=== PATIENT | female | born 1935 | race Caucasian/White ===

== ENCOUNTER 2022-01-21 10:33 | Emergency (ER) | payer MEDICARE, OTHER ==
[~2022-01-21] VITALS: Ht 162.6 cm; Wt 75.0 kg
[2022-01-21 10:46] VITALS: TEMP 98
[2022-01-21 12:40] VITALS: BP 148/78; PULSE 80
== END 2022-01-21 12:40 | disposition home or self-care (01) ==
LOC: COL.ER 10:33
DX: S01.112A Laceration without foreign body of left eyelid and periocular area, initial encounter (principal); M25.572 Pain in left ankle and joints of left foot; M25.532 Pain in left wrist; W01.198A Fall on same level from slipping, tripping and stumbling with subsequent striking against other object, initial encounter; Y92.015 Private garage of single-family (private) house as the place of occurrence of the external cause

== ENCOUNTER → 2022-01-26 | Outpatient (CLI) | payer MEDICARE, OTHER ==
[2022-01-26 08:57] VITALS: BP 130/86; PULSE 89; TEMP 98.3
== END ==
LOC: COL.ER 08:50
DX: Z48.02 Encounter for removal of sutures (principal)

== ENCOUNTER 2023-08-28 16:12 | Inpatient (IN) | payer MEDICARE ==
[2023-08-28] VITALS (279 sets, daily range): BP systolic 85–120; BP diastolic 61–70; PULSE 90–152; TEMP 98.8; O2SAT 81–100
[~2023-08-28] VITALS: Ht 162.6 cm; Wt 68.9 kg
[2023-08-28 16:38] LABS: BASO % 0.2 % (0.0-2.0); GRAN % 79.2 % (42.2-75.2); HEMATOCRIT 41.6 % (37.0-47.0); HEMOGLOBIN 14.2 g/dl (12.5-16.0); LYMPH # 0.9 K/mm3 (1.2-3.4); LYMPH % 9.6 % (20.0-51.0); MEAN CELL VOLUME 85 fl (80.0-100.0); MEAN CORPUSCULAR HEMOGLOBIN 29 pg (27-31); MEAN CORPUSCULAR HGB CONC 34 g/dl (33.0-37.0); MEAN PLATELET VOLUME 9.7 fl (7.4-10.4); MONO % 10.7 % (1.7-9.3); PLATELET COUNT 144 K/mm3 (130-400); RED BLOOD COUNT 4.89 M/mm3 (4.10-5.30); REDCELL DISTRIBUTION WIDTH-CV 13.5 % (11.5-14.5)
[2023-08-28 16:46] LABS: INR 1.2 (0.8-3.0); PROTHROMBIN TIME 12.5 SECONDS (9.7-12.8)
[2023-08-28 16:49] LABS: PARTIAL THROMBOPLASTIN TIME 30.5 SECONDS (26.0-37.0)
[2023-08-28 16:54] LABS: ALANINE AMINOTRANSFERASE 19 U/L (0-55); ALBUMIN 3.3 gm/dL (3.4-4.8); ALKALINE PHOSPHATASE 96 U/L (40-150); ANION GAP 14 mmol/L (7-16); AST,SGOT 36 U/L (5-34); BILIRUBIN,TOTAL 1.1 mg/dL (0.2-1.2); BLOOD UREA NITROGEN 27 mg/dL (10-20); CALCIUM 9.5 mg/dL (8.4-10.2); CARBON DIOXIDE 17 mmol/L (23-31); CHLORIDE 100 mmol/L (98-107); CREATININE, serum 1.26 mg/dL (0.57-1.11); GLUCOSE 123 mg/dL (70-99); POTASSIUM 3.4 mmol/L (3.5-4.5); SODIUM 131 mmol/L (136-145)
[2023-08-28] MEDS ORDERED: COZAAR100 MG PO (16:58)
[2023-08-28] MEDS ORDERED: LASIX 20MG TABL20 MG PO (16:58)
[2023-08-28 17:10] LABS: TROPONIN-I < 0.010 ng/mL (0.00-0.033)
--- NOTE | 2023-08-28 18:00 | NUR ---
Report received from CHRISTOPHER Miller; patient brought over from the ED on cardizem drip running through her peripheral line. Patient is on room air and vital signs are within normal limits with the exception of heart rate which is tachy and rhythm which is afib.
[2023-08-28] MEDS ORDERED: MULTIPLE VITAMI1 TA5 PO (18:31)
[2023-08-28] MEDS ORDERED: MIRALAX PA17 GM/Dose PO (18:31)
--- NOTE | 2023-08-28 19:10 | NUR ---
Received report from day shift nurse. Pt's vitals are stable at this time. Pt in sinus rhythm. Pt is alert and pt's daughter is at bedside. Pt is watching TV with the call light within reach.
[2023-08-29] VITALS (780 sets, daily range): BP systolic 87–124; BP diastolic 54–73; PULSE 81–104; TEMP 97.6–98.6; O2SAT 89–100
[2023-08-29 05:53] LABS: BASO % 0.1 % (0.0-2.0); GRAN # 6.3 K/mm3 (1.4-6.5); GRAN % 78.3 % (42.2-75.2); HEMATOCRIT 39.7 % (37.0-47.0); HEMOGLOBIN 12.6 g/dl (12.5-16.0); LYMPH # 0.8 K/mm3 (1.2-3.4); LYMPH % 9.9 % (20.0-51.0); MEAN CORPUSCULAR HEMOGLOBIN 29 pg (27-31); MEAN CORPUSCULAR HGB CONC 32 g/dl (33.0-37.0); MEAN PLATELET VOLUME 9.7 fl (7.4-10.4); MONO # 0.9 K/mm3 (0.1-0.6); MONO % 11.3 % (1.7-9.3); PLATELET COUNT 134 K/mm3 (130-400); RED BLOOD COUNT 4.42 M/mm3 (4.10-5.30); REDCELL DISTRIBUTION WIDTH-CV 13.7 % (11.5-14.5)
[2023-08-29 06:01] LABS: MEAN CELL VOLUME 90 fl (80.0-100.0)
[2023-08-29 06:06] LABS: CALCIUM 8.5 mg/dL (8.4-10.2); CREATININE, serum 0.88 mg/dL (0.57-1.11); POTASSIUM 3.4 mmol/L (3.5-4.5)
--- NOTE | 2023-08-29 06:58 | NUR ---
Pt's HR was in sinus rhythm until around 2300 when the pt got up to the bedside commode. When the pt got back into the bed the pt's HR was a-fib/aflutter and flipping back and forth from a-fib and SR. Pt stayed afib/aflutter until around 0222 the pt went into sinus tachy and is currently still in sinus. Pt denied chest pain, SOB, and did not feel like it was pounding when the rhythm was afib/aflutter. Pt was started on heparin drip at the beginning of the shift. Pt also on cardizem, talked to hospitalist to make sure it was titratable. Pt denied pain throughout the night. Pt's other vitals were stable throughout the night. Pt NPO at 0000. Gave report to CHRISTOPHER Davidson.
--- NOTE | 2023-08-29 09:03 | NUR ---
dope and fabric worker met with pt whom was sleeping, and her dtr, Michelle [phone] at bedside. Daughter reports patient is from [facility]. Her PCP is Dr. Lopez and [facility] medications from [facility] with no difficulties. Pt is independent with ADLS and does not use DME. Michelle reports she has a copy of DPOA-HC at home. JARAD advised she can see if [facility] has a copy they can send too. JARAD spoke with Mohit at [facility] who reports he will send the DPOA-HC. JARAD recieved this and placed a copy in the chart. JARAD sent updates to [facility].
--- NOTE | 2023-08-29 15:37 | NUR ---
10:30 FIRST DOSE OF PO AMNIODARONE GIVEN (400MG) PER PHYSICIAN ORDER AND TO D/C CARDIZEM.
--- NOTE | 2023-08-29 15:38 | NUR ---
1100: CARDIZEM AT 5MG /HR D/JACQUES AT THIS TIME.
--- NOTE | 2023-08-29 15:54 | NUR ---
DR PASCAL CONSULTED FOR CARDIOLOGY AND TO F/U WITH JB. PT OFF PRECAUTIONS AND WILL RESTART SUBOXONE, PER DR Rossi MARQUEZ.
[2023-08-30] VITALS (481 sets, daily range): BP systolic 104–113; BP diastolic 57–63; PULSE 77–82; TEMP 97.5–97.7; O2SAT 89–100
[2023-08-30 05:44] LABS: BASO % 0.2 % (0.0-2.0); EOS # 0.1 K/mm3 (0.0-0.7); GRAN % 69.9 % (42.2-75.2); HEMOGLOBIN 11.9 g/dl (12.5-16.0); LYMPH # 0.9 K/mm3 (1.2-3.4); LYMPH % 15.5 % (20.0-51.0); MEAN CORPUSCULAR HEMOGLOBIN 28 pg (27-31); MEAN CORPUSCULAR HGB CONC 34 g/dl (33.0-37.0); MEAN PLATELET VOLUME 9.8 fl (7.4-10.4); MONO # 0.8 K/mm3 (0.1-0.6); MONO % 13.1 % (1.7-9.3); PLATELET COUNT 162 K/mm3 (130-400); RED BLOOD COUNT 4.19 M/mm3 (4.10-5.30); REDCELL DISTRIBUTION WIDTH-CV 13.7 % (11.5-14.5)
[2023-08-30 05:47] LABS: HEMATOCRIT 35.1 % (37.0-47.0); MEAN CELL VOLUME 84 fl (80.0-100.0)
[2023-08-30 05:55] LABS: CALCIUM 8.9 mg/dL (8.4-10.2); CREATININE, serum 0.94 mg/dL (0.57-1.11); POTASSIUM 3.7 mmol/L (3.5-4.5)
--- NOTE | 2023-08-30 07:19 | NUR ---
Report received from CHRISTOPHER Whitley; patient currently resting in chair with no fluids or meds running through her peripheral lines. Patient is on 2 lpm via NC; no other lines or tubes are in place at this time. Patient remains in sinus rhythm and all vital signs are within normal limits this morning.
[2023-08-30] MEDS ORDERED: ELIQUIS 5MG PO (08:40)
[2023-08-30] MEDS ORDERED: CORDARONE200 MG/TAB PO (08:42)
--- NOTE | 2023-08-30 08:54 | NUR ---
dairy machine operator farmworker was informed pt can discharge today anytime to [facility]. SW spoke with daughter who informed SW she can transport patient today. Pt was awake and agreeable to the plan. JARAD spoke with Mohit at [facility] and updated him on the patient's return today.
--- NOTE | 2023-08-30 11:30 | NUR ---
Patient discharged home at approx 1115. Patient left with her daughter and all belongings were sent with patient. Patient was taken out by wheelchair by this nurse; patient was stable and vital signs were within normal limits. Patient remained in normal sinus rhythm. All discharge information was gone over and all questions were answered.
== END 2023-08-30 11:10 | disposition home or self-care (01) | DRG 310 ==
LOC: COL.ER 16:12 → ICU 17:46
PROVIDERS: Physician Assistant; ADMIT Internal Medicine
DX: I48.0 Paroxysmal atrial fibrillation (principal); I10 Essential (primary) hypertension; Z20.822 Contact with and (suspected) exposure to COVID-19; M25.552 Pain in left hip; E78.5 Hyperlipidemia, unspecified; Z79.01 Long term (current) use of anticoagulants; Z90.710 Acquired absence of both cervix and uterus; Z90.49 Acquired absence of other specified parts of digestive tract; Z88.8 Allergy status to other drugs, medicaments and biological substances; Z23 Encounter for immunization
CPT/HCPCS: A9500-JZ; G0378; J1644; J2785; J7030

== ENCOUNTER → 2024-04-27 | Outpatient (CLI) | payer MEDICARE ==
[~2024-04-27] MED LIST: CORDARONE200 MG/TAB PO; COZAAR100 MG PO; ELIQUIS 5MG PO; LASIX 20MG TABL20 MG PO; MIRALAX PA17 GM/Dose PO; MULTIPLE VITAMI1 TA5 PO
== END ==
LOC: COL.RAD 09:51
DX: I67.82 Cerebral ischemia (principal); G31.9 Degenerative disease of nervous system, unspecified; H53.2 Diplopia